=== PATIENT | male | born 1935 | race African-American/Black ===

== ENCOUNTER 2017-12-18 02:46 | Inpatient (IN) | payer MEDICARE, OTHER ==
[~2017-12-18] VITALS: Ht 167.6 cm; Wt 62.6 kg
[2017-12-18] MEDS ORDERED: Nitroglycerin Subl 0.4mg tab SL PRN (03:15)
[2017-12-18] MEDS ORDERED: DOXAZOSIN MESYLA8 MG ORAL (03:22)
[2017-12-18] MEDS ORDERED: CRESTOR20 MG ORAL (03:22)
[2017-12-18] MEDS ORDERED: METOPROLOL SUCC25 MG ORAL (03:22)
[2017-12-18 03:30] LABS: BASOPHILS % (AUTO) 0.5 % (0.0-2.0); HEMATOCRIT 46.6 % (42.0-52.0); HEMOGLOBIN 15.8 G/DL (14.2-18.0); MEAN CORPUSCULAR VOLUME 89 FL (80-99); MONOCYTES % (AUTO) 10.6 % (1.0-10.0); PLATELET COUNT 239 K/UL (150-450); RED BLOOD COUNT 5.25 M/UL (4.70-6.10); RED CELL DISTRIBUTION WIDTH 12.7 % (11.6-14.8); WHITE BLOOD COUNT 4.4 K/UL (4.8-10.8)
[2017-12-18 03:41] LABS: ANION GAP 4 mmol/L (5-15); BLOOD UREA NITROGEN 16 mg/dL (7-18); CALCIUM 8.5 MG/DL (8.5-10.1); CARBON DIOXIDE 32 MMOL/L (21-32); CHLORIDE 104 MMOL/L (98-107); CREATININE 1.1 MG/DL (0.55-1.30); POTASSIUM 3.3 MMOL/L (3.5-5.1); SODIUM 140 MMOL/L (136-145)
[2017-12-18 03:46] VITALS: BP 166/97
[2017-12-18 03:54] LABS: ALANINE AMINOTRANSFERASE 22 U/L (12-78); ALBUMIN 3.8 G/DL (3.4-5.0); ALBUMIN/GLOBULIN RATIO 0.9 (1.0-2.7); ALKALINE PHOSPHATASE 86 U/L (46-116); ASPARTATE AMINO TRANSFERASE 24 U/L (15-37); BILIRUBIN,TOTAL 0.4 MG/DL (0.2-1.0); CKMB 1.1 NG/ML (0.0-3.6); CREATINE KINASE 78 U/L (26-308)
--- NOTE | 2017-12-18 05:09 | Emergency Room Report ---
History of Present Illness General Chief Complaint: Chest Pain Source: Patient Present Illness HPI 82-year-old male presents ED for evaluation. Patient complaining of chest pain since 1 AM. Midsternal, dull, 5 out of 10, nonradiating. Per triage blood pressure is high. Systolic in the 200s. Patient admits to not taking his blood pressure medications. Denies any headache, blurry vision. Denies any neck stiffness. No other aggravating relieving factors. Denies any other associated symptoms Allergies: Coded Allergies: No Known Allergies (Unverified , 12/18/17) Patient History Past Medical History: HTN Past Surgical History: none Pertinent Family History: none Social History: Denies: smoking, alcohol use, drug use Immunizations: UTD Reviewed Nursing Documentation: PMH: Agreed; PSxH: Agreed Nursing Documentation-PMH Past Medical History: No History, Except For Hx Cardiac Problems: No - high cholesterol Hx Hypertension: Yes Review of Systems All Other Systems: negative except mentioned in HPI Physical Exam Vital Signs Date Time Temp Pulse Resp B/P (MAP) Pulse Ox O2 Delivery O2 Flow Rate FiO2 12/18/17 02:51 97.6 60 24 225/105 97 Room Air 97.5 Sp02 EP Interpretation: reviewed, normal General Appearance: no apparent distress, alert, GCS 15, non-toxic Head: normocephalic, atraumatic Eyes: bilateral eye normal inspection, bilateral eye PERRL ENT: hearing grossly normal, normal pharynx, no angioedema, normal voice Neck: full range of motion, supple/symm/no masses Respiratory: chest non-tender, lungs clear, normal breath sounds, speaking full sentences Cardiovascular #1: regular rate, rhythm, no edema Cardiovascular #2: 2+ carotid (R), 2+ carotid (L), 2+ radial (R), 2+ radial (L) , 2+ dorsalis pedis (R), 2+ dorsalis pedis (L) Gastrointestinal: normal bowel sounds, non tender, soft, non-distended, no guarding, no rebound Rectal: deferred Genitourinary: normal inspection, no CVA tenderness Musculoskeletal: back normal, gait/station normal, normal range of motion, non- tender Neurologic: alert, oriented x3, responsive, motor strength/tone normal, sensory intact, speech normal Psychiatric: judgement/insight normal, memory normal, mood/affect normal, no suicidal/homicidal ideation Reflexes: 3+ bicep (R), 3+ bicep (L), 3+ tricep (R), 3+ tricep (L), 3+ knee (R) , 3+ knee (L) Skin: normal color, no rash, warm/dry, well hydrated Lymphatic: no adenopathy Medical Decision Making Diagnostic Impression: Primary Impression: ACS (acute coronary syndrome) Additional Impression: Hypertensive urgency ER Course Hospital Course 82 yo M presents to ED with chest pain, elvated BP Differential diagnoses include: SD/unstable angina, hyperkalemia, hypertensive urgency Clinical course Patient placed on stretcher. on cardiac cath technologist. After initial history and physical I ordered labs, EKG, chest x-ray, Nitroglycerin labs reviewed- no leukocytosis, hemoglobin/hematocrit stable, electrolytes okay , troponins negative. EKG - NSR, twave inversions in lateral leads Chest x-ray- unremarkable BP, chest pain improved after nitroglycerin. Given aspirin Case discussed with Dr. Barrera and he agreed to accept the patient to his service for further care and support I. I feel this is a highly complex case requiring extensive working including EKG/Rhythm strip, Xray/CT/US, Blood/urine lab work, repeat exams while in ED, and administration of strong opiates/narcotics for pain control, admission to hospital or close patient follow up. Diagnosis - hypertensive urgency, ACS admitted to telemetry in serious condition Labs Test 12/18/17 03:24 White Blood Count 4.4 K/UL (4.8-10.8) Red Blood Count 5.25 M/UL (4.70-6.10) Hemoglobin 15.8 G/DL (14.2-18.0) Hematocrit 46.6 % (42.0-52.0) Mean Corpuscular Volume 89 FL (80-99) Mean Corpuscular Hemoglobin 30.2 PG (27.0-31.0) Mean Corpuscular Hemoglobin Concent 34.0 G/DL (32.0-36.0) Red Cell Distribution Width 12.7 % (11.6-14.8) Platelet Count 239 K/UL (150-450) Mean Platelet Volume 6.1 FL (6.5-10.1) Neutrophils (%) (Auto) 59.0 % (45.0-75.0) Lymphocytes (%) (Auto) 28.0 % (20.0-45.0) Monocytes (%) (Auto) 10.6 % (1.0-10.0) Eosinophils (%) (Auto) 2.0 % (0.0-3.0) Basophils (%) (Auto) 0.5 % (0.0-2.0) Sodium Level 140 MMOL/L (136-145) Potassium Level 3.3 MMOL/L (3.5-5.1) Chloride Level 104 MMOL/L (98-107) Carbon Dioxide Level 32 MMOL/L (21-32) Anion Gap 4 mmol/L (5-15) Blood Urea Nitrogen 16 mg/dL (7-18) Creatinine 1.1 MG/DL (0.55-1.30) Estimat Glomerular Filtration Rate mL/min (>60) Glucose Level 113 MG/DL (74-106) Calcium Level 8.5 MG/DL (8.5-10.1) Total Bilirubin 0.4 MG/DL (0.2-1.0) Aspartate Amino Transf (AST/SGOT) 24 U/L (15-37) Alanine Aminotransferase (ALT/SGPT) 22 U/L (12-78) Alkaline Phosphatase 86 U/L (46-116) Total Creatine Kinase 78 U/L (26-308) Creatine Kinase MB 1.1 NG/ML (0.0-3.6) Creatine Kinase MB Relative Index 1.4 Troponin I 0.013 ng/mL (0.000-0.056) Pro-B-Type Natriuretic Peptide 583 pg/mL (0-125) Total Protein 8.0 G/DL (6.4-8.2) Albumin 3.8 G/DL (3.4-5.0) Globulin 4.2 g/dL Albumin/Globulin Ratio 0.9 (1.0-2.7) EKG Diagnostic Results Rate: normal Rhythm: NSR ST Segments: other - twave inversions in lateral leads ASA given to the pt in ED: Yes Rhythm Strip Diag. Results EP Interpretation: yes Rhythm: NSR, no PVC's, no ectopy Chest X-Ray Diagnostic Results Chest X-Ray Diagnostic Results : Chest X-Ray Ordered: Yes # of Views/Limited/Complete: 1 View Indication: Chest Pain EP Interpretation: Yes Interpretation: no consolidation, no effusion, no pneumothorax, other - elevated R hemidiaphragm (unchanged) Impression: No acute disease Electronically Signed by: Electronically signed by Boogie Bloom MD Last Vital Signs Date Time Temp Pulse Resp B/P (MAP) Pulse Ox O2 Delivery O2 Flow Rate FiO2 12/18/17 03:46 66 18 166/97 98 Room Air 12/18/17 02:51 97.6 97.5 Status: improved Disposition: ADMITTED INPATIENT Condition: Serious Referrals: Vicente Barrera MD (PCP) Boogie Bloom MD Dec 18, 2017 05:09
[2017-12-18 06:11] VITALS: BP 168/94
[2017-12-18 08:00] VITALS: BP 183/89
[2017-12-18 12:00] VITALS: BP 164/83
--- NOTE | 2017-12-18 12:12 | Diagnostic Imaging Report ---
Indication: Chest pain Technique: XRAY Chest 1v Comparison: PA and lateral views of the chest 07/10/2017 Findings: Unchanged elevation of the right hemidiaphragm with adjacent right basilar atelectasis/scarring. Heart size and mediastinal contours appear stable. Atherosclerotic calcifications noted in the aortic arch. Costophrenic sulci appear sharp. No pneumothorax. No appreciable acute osseous normality. IMPRESSION: * Unchanged elevation of the right hemidiaphragm. * Linear right basilar opacities likely related to atelectasis or scarring. Correlate clinically to exclude the possibility of superimposed infection. * Atherosclerotic disease.
[2017-12-18 16:00] VITALS: BP 147/67
[2017-12-18] MEDS: Doxazosin 4mg tab ORAL SCH (17:50)
--- NOTE | 2017-12-18 19:54 | Cardiology Report ---
APPROVED REPORT EKG Measurement Heart [id number] Sinus rhythm with frequent premature ventricular complexes Septal infarct, age undetermined Abnormal ECG
[2017-12-18 20:00] VITALS: BP 122/73
[2017-12-18] MEDS: Atorvastatin 20mg tab ORAL SCH (22:36)
--- NOTE | 2017-12-18 23:00 | Consultation ---
DATE OF CONSULTATION: 12/18/2017 CARDIOLOGY CONSULTATION CONSULTING PHYSICIAN: Vicente Barrera M.D. REQUESTING PHYSICIAN: Mani Laughlin M.D. REASON FOR CONSULTATION: Chest pain and uncontrolled hypertension. HISTORY OF PRESENT ILLNESS: This 82-year-old male has a known history of hypertensive and ischemic heart disease. He has been on a multidrug regimen with good blood pressure control. He ran out of medications last week and did not pick them up from the drugstore even though they were called in and ready to be picked up for several days. He developed chest pain this evening at around 1 a.m. The patient was admitted to the hospital with malignant range blood pressure readings as well. 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 MEDICATIONS: Prior to admission, reviewed and reconciled. ALLERGIES: None. FAMILY HISTORY: Noncontributory. SOCIAL HISTORY: Negative for smoking, alcohol, or substance abuse. REVIEW OF SYSTEMS: No fevers or chills. No history of diabetes or thyroid impairment. No history of seizure or stroke. He is on anti-lipid therapy. He had an echo stress test, which revealed mild ischemia in the inferior distribution that has been managed medically per his request. His baseline echocardiogram reveals normal ejection fraction, concentric hypertrophy, and a diastolic relaxation abnormality. There is no history of asthma or blood clots in the legs. He has had outpatient colonoscopy screening, which has been unremarkable. PHYSICAL EXAM: VITAL SIGNS: Blood pressure 225/105, pulse 60, and respirations 24. Afebrile. HEENT: Conjunctivae pink. Arcus senilis. Oropharynx clear. NECK: Supple. Jugular venous pressure normal. No bruits. LUNGS: Clear. CARDIAC: Regular rhythm and rate. Normal S1, S2 with a fourth heart sound. ABDOMEN: Soft and nontender. EXTREMITIES: Good pulses. No edema. NEUROLOGIC: Nonfocal. LABORATORY AND DIAGNOSTIC DATA: EKG, sinus rhythm, voltage for left ventricular hypertrophy, nonspecific ST-T wave changes. Labs notable for potassium 3.3. Troponin 0.013. Pro-natriuretic peptide 583. IMPRESSION: 1. Acute coronary syndrome. 2. Malignant hypertension. 3. Hypokalemia. 4. Acute diastolic congestive heart failure. 5. Medication noncompliance. 6. History of hyperlipidemia. PLAN: 1. Cardiac monitoring. 2. Titration stepwise of antihypertensives for adequate blood pressure control. 3. Antiplatelet therapy. 4. Serial troponin levels. 5. Further recommendations will follow based on clinical course. Vicente Barrera M.D. DR: GLYNN JOB#: [id number] CC: IWONA
[2017-12-19] VITALS: BP 119/75
[2017-12-19 04:00] VITALS: BP 130/69
[2017-12-19 07:17] LABS: BASOPHILS % (AUTO) 0.2 % (0.0-2.0); EOSINOPHILS % (AUTO) 0.8 % (0.0-3.0); HEMATOCRIT 43.1 % (42.0-52.0); HEMOGLOBIN 14.9 G/DL (14.2-18.0); LYMPHOCYTES % (AUTO) 20.7 % (20.0-45.0); MEAN CORPUSCULAR VOLUME 88 FL (80-99); NEUTROPHILS % (AUTO) 69.3 % (45.0-75.0); PLATELET COUNT 228 K/UL (150-450); RED BLOOD COUNT 4.89 M/UL (4.70-6.10); RED CELL DISTRIBUTION WIDTH 12.4 % (11.6-14.8); WHITE BLOOD COUNT 4.5 K/UL (4.8-10.8)
[2017-12-19 07:57] LABS: ALBUMIN 3.5 G/DL (3.4-5.0); ALBUMIN/GLOBULIN RATIO 0.9 (1.0-2.7); ALKALINE PHOSPHATASE 76 U/L (46-116); ANION GAP 7 mmol/L (5-15); ASPARTATE AMINO TRANSFERASE 24 U/L (15-37); BILIRUBIN,TOTAL 0.5 MG/DL (0.2-1.0); BLOOD UREA NITROGEN 13 mg/dL (7-18); CALCIUM 8.9 MG/DL (8.5-10.1); CARBON DIOXIDE 29 MMOL/L (21-32); CHLORIDE 105 MMOL/L (98-107); CREATININE 0.9 MG/DL (0.55-1.30); POTASSIUM 4.5 MMOL/L (3.5-5.1); SODIUM 141 MMOL/L (136-145)
[2017-12-19 08:00] VITALS: BP 117/78
[2017-12-19] MEDS: Aspirin Baby 81mg ORAL SCH (09:18)
[2017-12-19] MEDS: Doxazosin 4mg tab ORAL SCH ×2 (09:18→18:42)
[2017-12-19] MEDS: Metoprolol Succinate XL 25mg tab ORAL SCH (09:18)
[2017-12-19] MEDS: Spironolactone 25mg tab ORAL SCH (09:18)
[2017-12-19 10:42] LABS: ALANINE AMINOTRANSFERASE 19 U/L (12-78)
[2017-12-19 12:00] VITALS: BP 128/77
[2017-12-19 16:00] VITALS: BP 141/73
[2017-12-19 20:00] VITALS: BP 111/64
[2017-12-19] MEDS: Atorvastatin 20mg tab ORAL SCH (21:55)
[2017-12-20] VITALS: BP 111/61
--- NOTE | 2017-12-20 00:30 | Progress Note ---
DATE: 12/19/2017 SUBJECTIVE: The patient is anxious to go home. He denies chest pain or shortness of breath. He is pleased with his control of blood pressure readings. Monitored sinus rhythm with frequent nonsustained ventricular ectopics. OBJECTIVE: NECK: Supple. LUNGS: Clear. CARDIAC: Regular. Normal S1 and S2 with a fourth heart sound. ABDOMEN: Soft. EXTREMITIES: No edema. LABORATORY DATA: Potassium 4.5, BUN 13, and creatinine 0.9. Troponin down to 1.557. IMPRESSION: 1. Hypertensive urgency, resolved and precipitated by noncompliance. 2. Acute myocardial infarction, precipitated by above. 3. Hypomagnesemia of 1.7. 4. History of hyperlipidemia. PLAN: 1. Maintain anti-platelet therapy, beta-blockade ____ antihypertensives with titration. 2. Continue statin drug. 3. IV magnesium replacement. 4. We will likely need coronary angiography for assessment of coronary anatomy if he has had abnormal outpatient stress test in the past. The timing of this study to be determined. Vicente Barrera M.D. DR: CLARA JOB#: [id number] CC:
--- NOTE | 2017-12-20 01:00 | History and Physical Report ---
DATE OF ADMISSION: 12/18/2017 CHIEF COMPLAINT: Chest pain and acute coronary syndrome. HISTORY OF PRESENT ILLNESS: The patient is a pleasant 82-year-old male. He has a history of hypertensive heart disease and coronary artery disease. He presented with complaints of intermittent substernal chest pain, it is described as pressure-like. The patient started early in the morning. According to the patient, resolved after 30 minutes. He would present to the hospital where he was noted to be markedly hypertensive. His initial troponin in the emergency room was normal at 0.013. 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 Declined any additional workup at that time. He otherwise denies any fevers or chills. He has had no shortness of breath. No night sweats. No cough. PAST MEDICAL HISTORY: As above hyperlipidemia, history of back pain, and history of anemia. PAST SURGICAL HISTORY: None. CURRENT MEDICATIONS: Reconciled and reviewed. ALLERGIES: None. FAMILY HISTORY: None. SOCIAL HISTORY: Negative for tobacco, ethanol, or drugs. REVIEW OF SYSTEMS: GENERAL: No fever, chills, or night sweats. HEENT: No headaches or visual changes. CARDIOPULMONARY: Positive for chest pain. No shortness of breath. No cough. GASTROINTESTINAL: No nausea or vomiting. GENITOURINARY: No urgency or frequency. MUSCULOSKELETAL: No joint pain or swelling. NEUROLOGIC: No evidence of seizures. PHYSICAL EXAMINATION: VITAL SIGNS: Temperature 98 degrees, pulse 95, respirations 20, and blood pressure 117/78. GENERAL: The patient is well developed, no apparent distress. NECK: Supple. No jugular venous distention. HEART: Regular rate and rhythm without murmurs, rubs, or gallops. LUNGS: Clear to auscultation bilaterally. ABDOMEN: Soft, nontender, and nondistended. EXTREMITIES: Without clubbing, cyanosis, or edema. LABORATORY DATA: Sodium is 140, potassium 3.3, and creatinine is 1.1. Initial troponin was 0.013. Natriuretic peptide level was 583. Chest x-ray was clear. ASSESSMENT: This is a pleasant male, admitted with complaints of chest pain. PROBLEM LIST: 1. Chest pain, rule out acute coronary syndrome. 2. Hypertension. 3. History of ischemic cardiomyopathy. PLAN: 1. Antiplatelet therapy, p.r.n. nitrates. 2. Cardiology consultation. 3. Serial troponins. 4. Plan of care will be determined after review of pending tests. Mani Laughlin M.D. DR: ANNA JOB#: [id number] CC:
[2017-12-20 04:00] VITALS: BP 133/72
[2017-12-20 08:00] VITALS: BP 141/72
[2017-12-20] MEDS: Metoprolol Succinate XL 25mg tab ORAL SCH (08:41)
[2017-12-20] MEDS: Doxazosin 4mg tab ORAL SCH ×2 (08:41→17:15)
[2017-12-20] MEDS: Aspirin Baby 81mg ORAL SCH (08:41)
[2017-12-20] MEDS: Spironolactone 25mg tab ORAL SCH (08:42)
[2017-12-20 11:54] VITALS: BP 125/66
--- NOTE | 2017-12-20 12:35 | General Progress Note ---
Assessment/Plan Problem List: (1) Hypertension ICD Codes: I10 - Essential (primary) hypertension SNOMED: 82820600 (2) ACS (acute coronary syndrome) ICD Codes: I24.9 - Acute ischemic heart disease, unspecified SNOMED: 860806736 Status: stable, progressing Assessment/Plan antiplt rx prn nitrates statin rx outpt cath Subjective ROS Limited/Unobtainable: No Constitutional: Reports: malaise, weakness HEENT: Reports: no symptoms Cardiovascular: Reports: no symptoms Respiratory: Reports: no symptoms Gastrointestinal/Abdominal: Reports: no symptoms Genitourinary: Reports: no symptoms Neurologic/Psychiatric: Reports: no symptoms Endocrine: Reports: no symptoms Hematologic/Lymphatic: Reports: no symptoms Allergies: Coded Allergies: No Known Allergies (Unverified , 12/18/17) All Systems: reviewed and negative except above Subjective no events. w/o complaints. no CP. troponin trending down. Objective Last 24 Hour Vital Signs Date Time Temp Pulse Resp B/P (MAP) Pulse Ox O2 Delivery O2 Flow Rate FiO2 12/20/17 11:54 97.9 73 20 125/66 (85) 99 97.9 12/20/17 09:00 Room Air 12/20/17 08:42 64 141/72 12/20/17 08:41 64 141/72 12/20/17 08:00 97.2 64 20 141/72 (95) 98 97.2 12/20/17 08:00 58 12/20/17 04:00 97.7 67 20 133/72 (92) 96 97.7 12/20/17 04:00 55 12/20/17 00:00 97.7 64 20 111/61 (78) 95 97.7 12/20/17 00:00 56 12/19/17 21:00 Room Air 12/19/17 20:00 65 12/19/17 20:00 98.1 72 20 111/64 (80) 94 98.1 12/19/17 16:00 63 12/19/17 16:00 97.9 71 18 141/73 (95) 95 97.9 Intake and Output 12/19/17 12/20/17 19:00 07:00 Intake Total 480 ml 100 ml Balance 480 ml 100 ml Intake Oral 480 ml 100 ml # Voids 2 # Bowel Movements 2 Height (Feet): 5 Height (Inches): 6.00 Weight (Pounds): 138 General Appearance: WD/WN Neck: supple Cardiovascular: normal rate, regular rhythm Respiratory/Chest: chest wall non-tender, lungs clear, normal breath sounds Abdomen: normal bowel sounds, non tender, soft, no organomegaly Edema: no edema noted Arm (L), no edema noted Arm (R), no edema noted Leg (L), no edema noted Leg (R), no edema noted Pedal (L), no edema noted Pedal (R), no edema noted Generalized Mani Laughlin MD Dec 20, 2017 12:35
[2017-12-20 16:00] VITALS: BP 120/65
[2017-12-20 20:00] VITALS: BP 114/58
[2017-12-20] MEDS: Atorvastatin 20mg tab ORAL SCH (21:49)
[2017-12-21] VITALS: BP 109/65
--- NOTE | 2017-12-21 01:45 | Progress Note ---
DATE: 12/20/2017 SUBJECTIVE: The patient continues to remain anxious to go home. He has no chest pain. No shortness of breath. Blood pressure is well controlled. Troponin has decreased from a peak of 1.557 to 0.576 today. OBJECTIVE: LUNGS: Good breath sounds. No wheezing. Jugular venous pressure normal. HEART: Regular rhythm rate. Normal S1 and S2 with a fourth heart sound. ABDOMEN: Soft. No edema. IMPRESSION: 1. Acute myocardial infarction, non-ST elevation type. 2. Hypertensive urgency, resolved. 3. Hypertensive heart disease. 4. Hyperlipidemia. PLAN: 1. Stabilize medically. 2. Continue anti-platelet, anti-lipid, and antihypertensive regimen. 3. He will need coronary angiography for assessment of coronary anatomy and possible intervention based on findings. Timing to be determined based on clinical course. Vicente Barrera M.D. DR: BEBE JOB#: [id number] CC:
[2017-12-21 04:00] VITALS: BP 119/68
[2017-12-21 06:29] LABS: BASOPHILS % (AUTO) 0.4 % (0.0-2.0); EOSINOPHILS % (AUTO) 1.5 % (0.0-3.0); HEMATOCRIT 42.1 % (42.0-52.0); HEMOGLOBIN 14.5 G/DL (14.2-18.0); LYMPHOCYTES % (AUTO) 20.2 % (20.0-45.0); MEAN CORPUSCULAR VOLUME 88 FL (80-99); MONOCYTES % (AUTO) 10.3 % (1.0-10.0); NEUTROPHILS % (AUTO) 67.8 % (45.0-75.0); PLATELET COUNT 208 K/UL (150-450); RED BLOOD COUNT 4.79 M/UL (4.70-6.10); RED CELL DISTRIBUTION WIDTH 12.1 % (11.6-14.8); WHITE BLOOD COUNT 5.3 K/UL (4.8-10.8)
[2017-12-21 07:03] LABS: ALANINE AMINOTRANSFERASE 25 U/L (12-78); ALBUMIN 3.5 G/DL (3.4-5.0); ALBUMIN/GLOBULIN RATIO 0.9 (1.0-2.7); ALKALINE PHOSPHATASE 81 U/L (46-116); ANION GAP 6 mmol/L (5-15); ASPARTATE AMINO TRANSFERASE 26 U/L (15-37); BILIRUBIN,TOTAL 0.5 MG/DL (0.2-1.0); BLOOD UREA NITROGEN 20 mg/dL (7-18); CALCIUM 8.9 MG/DL (8.5-10.1); CARBON DIOXIDE 27 MMOL/L (21-32); CHLORIDE 105 MMOL/L (98-107); POTASSIUM 4.6 MMOL/L (3.5-5.1); SODIUM 138 MMOL/L (136-145)
[2017-12-21 08:00] VITALS: BP 132/75
[2017-12-21] MEDS: Aspirin Baby 81mg ORAL SCH (08:49)
[2017-12-21] MEDS: Spironolactone 25mg tab ORAL SCH (08:49)
[2017-12-21] MEDS: Doxazosin 4mg tab ORAL SCH ×2 (08:49→17:25)
[2017-12-21] MEDS: Metoprolol Succinate XL 25mg tab ORAL SCH (08:50)
[2017-12-21 12:00] VITALS: BP 118/67
[2017-12-21 16:00] VITALS: BP 147/75
--- NOTE | 2017-12-21 19:05 | General Progress Note ---
Assessment/Plan Problem List: (1) Hypertension ICD Codes: I10 - Essential (primary) hypertension SNOMED: 98874197 (2) ACS (acute coronary syndrome) ICD Codes: I24.9 - Acute ischemic heart disease, unspecified SNOMED: 066441099 Status: stable, progressing Assessment/Plan antiplt rx prn nitrates statin rx outpt cath dc per cards Subjective ROS Limited/Unobtainable: No Constitutional: Reports: malaise, weakness HEENT: Reports: no symptoms Cardiovascular: Reports: no symptoms Respiratory: Reports: no symptoms Gastrointestinal/Abdominal: Reports: no symptoms Genitourinary: Reports: no symptoms Neurologic/Psychiatric: Reports: no symptoms Endocrine: Reports: no symptoms Hematologic/Lymphatic: Reports: no symptoms Allergies: Coded Allergies: No Known Allergies (Unverified , 12/18/17) All Systems: reviewed and negative except above Subjective no events. w/o complaints. no CP. troponin trending down. no new concerns or questions. son at the bedside Objective Last 24 Hour Vital Signs Date Time Temp Pulse Resp B/P (MAP) Pulse Ox O2 Delivery O2 Flow Rate FiO2 12/21/17 16:00 63 12/21/17 16:00 97.9 66 20 147/75 (99) 96 97.9 12/21/17 12:00 52 12/21/17 12:00 97.0 69 20 118/67 (84) 98 97.0 12/21/17 09:00 Room Air 12/21/17 08:50 75 132/75 12/21/17 08:50 75 132/75 12/21/17 08:00 96.8 75 20 132/75 (94) 96 96.8 12/21/17 08:00 60 12/21/17 04:00 67 12/21/17 04:00 97.3 67 21 119/68 (85) 93 97.3 12/21/17 00:00 63 12/21/17 00:00 97.5 67 20 109/65 (80) 93 97.5 12/20/17 21:00 Room Air 12/20/17 20:00 75 12/20/17 20:00 97.7 77 20 114/58 (76) 95 97.7 Intake and Output 12/20/17 12/21/17 19:00 07:00 Intake Total 600 ml 120 ml Balance 600 ml 120 ml Intake Oral 600 ml 120 ml # Voids 2 2 # Bowel Movements 2 Laboratory Tests 12/21/17 05:30: White Blood Count 5.3, Red Blood Count 4.79, Hemoglobin 14.5, Hematocrit 42.1, Mean Corpuscular Volume 88, Mean Corpuscular Hemoglobin 30.3, Mean Corpuscular Hemoglobin Concent 34.5, Red Cell Distribution Width 12.1, Platelet Count 208, Mean Platelet Volume 6.1L, Neutrophils (%) (Auto) 67.8, Lymphocytes (%) (Auto) 20.2, Monocytes (%) (Auto) 10.3H, Eosinophils (%) (Auto) 1.5, Basophils (%) ( Auto) 0.4, Sodium Level 138, Potassium Level 4.6, Chloride Level 105, Carbon Dioxide Level 27, Anion Gap 6, Blood Urea Nitrogen 20H, Creatinine 1.0, Estimat Glomerular Filtration Rate , Glucose Level 102, Calcium Level 8.9, Magnesium Level 2.0, Total Bilirubin 0.5, Aspartate Amino Transf (AST/SGOT) 26, Alanine Aminotransferase (ALT/SGPT) 25, Alkaline Phosphatase 81, Troponin I 0.514H, Pro- B-Type Natriuretic Peptide 131H, Total Protein 7.2, Albumin 3.5, Globulin 3.7, Albumin/Globulin Ratio 0.9L Height (Feet): 5 Height (Inches): 6.00 Weight (Pounds): 138 Objective General Appearance: WD/WN Neck: supple Cardiovascular: normal rate, regular rhythm Respiratory/Chest: chest wall non-tender, lungs clear, normal breath sounds Abdomen: normal bowel sounds, non tender, soft, no organomegaly Edema: no edema noted Arm (L), no edema noted Arm (R), no edema noted Leg (L), no edema noted Leg (R), no edema noted Pedal (L), no edema noted Pedal (R), no edema noted Generalized Mani Laughlin MD Dec 21, 2017 19:05
[2017-12-21 20:00] VITALS: BP 129/71
[2017-12-21] MEDS: Heparin 5000 units/ml inj SUBQ SCH (21:13)
[2017-12-21] MEDS: Atorvastatin 20mg tab ORAL SCH (21:13)
[2017-12-21] MEDS ORDERED: Lexiscan 0.4mg/5ml syringe IV SCH (22:30)
[2017-12-22] VITALS: BP 110/59
--- NOTE | 2017-12-22 03:15 | Progress Note ---
DATE: 12/21/2017 CARDIOLOGY PROGRESS NOTE SUBJECTIVE: No chest pain or shortness of breath. Feels weak today. OBJECTIVE: VITAL SIGNS: Blood pressure 118/67 to 147/75, heart rate 52 to 66, afebrile. Monitor, sinus and sinus bradycardia. Troponin down to 0.51. LUNGS: Good breath sounds. No wheezing. No rales. HEART: Regular rhythm and rate. Normal S1, S2 with a fourth heart sound. No jugular venous distention. EXTREMITIES: Without edema. Good distal pulses. NEUROLOGIC: Nonfocal. IMPRESSION: 1. Malignant hypertension, secondary to noncompliance, recovered. 2. Acute myocardial infarction, uncomplicated. 3. History of coronary artery disease with stable angina previously. 4. Dyslipidemia on statin therapy. 5. Sinus bradycardia due to beta-ca therapy. PLAN: 1. Continue anti-lipid drugs, anti-platelet therapy, and current antihypertensives. 2. Maintain cardiac monitoring. 3. Noninvasive assessment of coronary flow reserve. 4. We will follow and subsequent consideration for coronary angiography. Vicente Barrera M.D. DR: MARY JOB#: [id number] CC:
[2017-12-22 04:00] VITALS: BP 106/67
[2017-12-22 08:00] VITALS: BP 121/63
[2017-12-22] MEDS ORDERED: Lexiscan 0.4mg/5ml syringe IV SCH (08:00)
--- NOTE | 2017-12-22 08:10 | General Progress Note ---
Assessment/Plan Problem List: (1) Hypertension ICD Codes: I10 - Essential (primary) hypertension SNOMED: 29413610 (2) ACS (acute coronary syndrome) ICD Codes: I24.9 - Acute ischemic heart disease, unspecified SNOMED: 225568937 Status: stable, progressing Assessment/Plan antiplt rx prn nitrates statin rx outpt cath dc per cards Subjective ROS Limited/Unobtainable: No HEENT: Reports: no symptoms Cardiovascular: Reports: no symptoms Respiratory: Reports: no symptoms Gastrointestinal/Abdominal: Reports: no symptoms Genitourinary: Reports: no symptoms Neurologic/Psychiatric: Reports: no symptoms Endocrine: Reports: no symptoms Hematologic/Lymphatic: Reports: no symptoms Allergies: Coded Allergies: No Known Allergies (Unverified , 12/18/17) All Systems: reviewed and negative except above Subjective no events. w/o complaints. no chest pain or sob Objective Last 24 Hour Vital Signs Date Time Temp Pulse Resp B/P (MAP) Pulse Ox O2 Delivery O2 Flow Rate FiO2 12/22/17 04:00 98.1 78 18 106/67 (80) 96 98.1 12/22/17 04:00 73 12/22/17 00:00 98.2 67 20 110/59 (76) 96 98.2 12/22/17 00:00 80 12/21/17 21:00 Room Air 12/21/17 20:00 98.0 87 20 129/71 (90) 96 98.0 12/21/17 20:00 63 12/21/17 16:00 63 12/21/17 16:00 97.9 66 20 147/75 (99) 96 97.9 12/21/17 12:00 52 12/21/17 12:00 97.0 69 20 118/67 (84) 98 97.0 12/21/17 09:00 Room Air 12/21/17 08:50 75 132/75 12/21/17 08:50 75 132/75 Intake and Output 12/21/17 12/22/17 19:00 07:00 Intake Total 500 ml Balance 500 ml Intake Oral 500 ml # Voids 3 3 # Bowel Movements 4 2 Laboratory Tests 12/22/17 06:35: Troponin I [Pending], Pro-B-Type Natriuretic Peptide [Pending] Height (Feet): 5 Height (Inches): 6.00 Weight (Pounds): 138 Objective General Appearance: WD/WN Neck: supple Cardiovascular: normal rate, regular rhythm Respiratory/Chest: chest wall non-tender, lungs clear, normal breath sounds Abdomen: normal bowel sounds, non tender, soft, no organomegaly Edema: no edema noted Arm (L), no edema noted Arm (R), no edema noted Leg (L), no edema noted Leg (R), no edema noted Pedal (L), no edema noted Pedal (R), no edema noted Generalized Mani Laughlin MD Dec 22, 2017 08:10
[2017-12-22] MEDS: Spironolactone 25mg tab ORAL SCH (08:36)
[2017-12-22] MEDS: Aspirin Baby 81mg ORAL SCH (08:36)
[2017-12-22] MEDS: Heparin 5000 units/ml inj SUBQ SCH (08:36)
[2017-12-22] MEDS: Doxazosin 4mg tab ORAL SCH (08:37)
[2017-12-22] MEDS: Metoprolol Succinate XL 25mg tab ORAL SCH (08:38)
[2017-12-22 12:00] VITALS: BP 144/77
--- NOTE | 2017-12-22 15:25 | Diagnostic Imaging Report ---
Indications: Chest pain Technique: Single day single isotope protocol utilized. Initially, resting images obtained using IV administration 10.6 millicuries 99M technetium Myoview. Subsequently, patient underwent lexiscan stress testing. See cardiology report for details. During Lexiscan infusion, IV administration 32.3 mCi 99 M technetium Myoview. SPECT and planar images obtained. SPECT images gated to 8 phases of the cardiac cycle were also obtained, and reformatted into cine images for evaluation of ejection fraction. Comparison: none Findings: Presence or absence of symptoms during infusion is not described on the cardiology report. Per cardiology report, resting EKG demonstrates sinus rhythm with PACs, age indeterminate septal infarct. During infusion, [address] depression noted. Imaging demonstrates normal poststress perfusion. No fixed nor reversible perfusion defects. Normal cardiac chamber size. Calculated post stress ejection fraction 66%. No focal wall motion abnormality Impression: Nonischemic clinical response to pharmacologic stress, per cardiology report Ischemic electrocardiographic response to pharmacologic stress, per cardiology report No imaging findings to suggest ischemia, at level of stress achieved. Calculated post stress ejection fraction 66%
--- NOTE | 2017-12-23 03:45 | Progress Note ---
DATE: 12/22/2017 CARDIOLOGY PROGRESS NOTE SUBJECTIVE: The patient has no chest pain. No shortness of breath. Monitored rhythm, sinus with rare PVCs. OBJECTIVE: VITAL SIGNS: Blood pressure now well controlled 106/67 to 129/71, heart rate in the 60 to 80 range. LUNGS: Good breath sounds. No wheezing. HEART: Regular rhythm and rate. Normal S1 and S2 with a fourth heart sound. No murmur. ABDOMEN: Soft. EXTREMITIES: No edema. LABORATORY DATA: Myocardial perfusion scan was performed with Lexiscan stress and while the patient had some ST change, his perfusion scan was normal. IMPRESSION: 1. Acute myocardial infarction likely precipitated by hypertensive urgency. 2. Hypertensive urgency was precipitated by noncompliance of medical therapy. 3. 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 PLAN: The patient is advised and explained to comply with his medication regimen. He is now aware of the risks including repeat heart attack, stroke, or . The patient will follow up in my office within 10 days' time. The patient's medications were reviewed in detail with him and he is to follow up as described. Vicente Barrera M.D. DR: ALEAH JOB#: [id number] CC:
--- NOTE | 2017-12-25 08:12 | Discharge Summary ---
Discharge Summary Discharge Summary _ DATE OF ADMISSION: 12/18/2017 DATE OF DISCHARGE: 12/22/2017 REASON FOR ADMISSION: 82 years old male with past medical history of hypertensive heart disease, coronary artery disease, hyperlipidemia, anemia, back pain presented with complaint of intermittent substernal chest pain described as pressure-like. Pain resolved after 30 minutes. Upon evaluation patient was markedly hypertensive. Blood pressure 225/105. Initial troponin was negative. ECG revealed sinus rhythm with frequent premature ventricular complexes Patient recently had stress test, which was abnormal in his radio interference investigator's office. No shortness of breath,no fever, no chills, no night sweats. Chest x-ray revealed atherosclerotic disease. Patient admitted with diagnoses of chest pain, rule out acute coronary syndrome , hypertensive urgency, hypertensive heart disease. CONSULTANTS: radio interference investigator [facility] COURSE: Patient admitted to telemetry floor. Cardiology consult was requested. Next troponin elevated to 1.557, then started to trend down , last troponin prior to discharge 0.215. Medical management with antiplatelet therapy ,beta ca, statin and nitroglycerin as needed , was provided. Blood pressure was managed with beta ca ,calcium channel ca, Cardura and low dose of Aldactone. Blood pressure stabilized. Prior to discharge blood pressure 144/77. Nuclear stress test revealed nonischemic clinical response and ischemic electrocardiographic response as per cardiology report. Calculated ejection fraction 66%. No imaging finding to suggest ischemia level stressed. Patient was counseled on compliance with medical therapy and cardiac low-fat low-cholesterol diet. Patient will need outpatient cardiac catheterization . Electrolytes were closely monitored and corrected as needed. Supplemental oxygen provided as needed to keep pulse oximetry above 92%. DVT prophylaxis provided. Pain management was addressed, and pain was controlled. Supportive care provided. Patient clinically improved ; chest pain resolved, blood pressure stabilized. Patient was ready for discharge home. Outpatient follow-up with radio interference investigator in 10 days. 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 DISCHARGE INSTRUCTIONS: Patient was discharged home . Follow up with radio interference investigator in 10 days as advised. I have been assigned to dictate discharge summary for this account. I was not involved in the patient's management. Alisa Haq NP Dec 25, 2017 08:12
== END 2017-12-22 15:20 | disposition home or self-care (01) | DRG 280 ==
LOC: EMR 03:10 → 2E 03:25 → EDBEDREQ 04:13 → 2E 22:27
DX: I21.9 Acute myocardial infarction, unspecified (principal); I50.31 Acute diastolic (congestive) heart failure; I11.0 Hypertensive heart disease with heart failure; I16.0 Hypertensive urgency; E78.5 Hyperlipidemia, unspecified; M19.90 Unspecified osteoarthritis, unspecified site; I25.10 Atherosclerotic heart disease of native coronary artery without angina pectoris; D51.0 Vitamin B12 deficiency anemia due to intrinsic factor deficiency; E87.6 Hypokalemia; Z91.14 Patient's other noncompliance with medication regimen; E83.42 Hypomagnesemia; I24.9 Acute ischemic heart disease, unspecified; R00.1 Bradycardia, unspecified; T44.7X5A Adverse effect of beta-adrenoreceptor antagonists, initial encounter
CPT/HCPCS: 36415; 71045; 78452; 80053; 82550; 82553; 83735; 83880; 84484; 85025; 93005; 93017; 93306; 99285; J2785; J8499

== ENCOUNTER 2020-05-12 11:05 | Inpatient (IN) | payer MEDICARE, OTHER ==
[~2020-05-12] VITALS: Ht 167.6 cm; Wt 62.1 kg
[~2020-05-12 11:05] MED LIST: CRESTOR20 MG ORAL; DOXAZOSIN MESYLA8 MG ORAL; METOPROLOL SUCC25 MG ORAL
[2020-05-12] MEDS: Aspirin Baby 81mg ORAL SCH (14:30)
[2020-05-12 15:12] LABS: BASOPHILS % (AUTO) 0.4 % (0.0-2.0); EOSINOPHILS % (AUTO) 0.3 % (0.0-3.0); HEMATOCRIT 48.8 % (42.0-52.0); HEMOGLOBIN 16.6 G/DL (14.2-18.0); LYMPHOCYTES % (AUTO) 23.1 % (20.0-45.0); MEAN CORPUSCULAR VOLUME 88 FL (80-99); MONOCYTES % (AUTO) 12.1 % (1.0-10.0); NEUTROPHILS % (AUTO) 64.1 % (45.0-75.0); PLATELET COUNT 280 K/UL (150-450); RED BLOOD COUNT 5.55 M/UL (4.70-6.10); RED CELL DISTRIBUTION WIDTH 13.3 % (11.6-14.8); WHITE BLOOD COUNT 4.7 K/UL (4.8-10.8)
--- NOTE | 2020-05-12 15:13 | Diagnostic Imaging Report ---
Indication: Altered mental status Technique: spiral acquisitions obtained through the brain. Angled axial and coronal 5 x 5 mm slices were reconstructed. No IV contrast utilized. Radiation dose was minimized using automated exposure control Total dose length product 1098 mGycm. CTDIvol(s) 53 mGy Comparison: none FINDINGS: No acute hemorrhage or edema. No mass effect or midline shift. There is age-related enlargement of the ventricles and extra axial CSF spaces. There is periventricular deep white matter ischemic change. Normal torres-white differentiation. Visualized orbits are unremarkable. Visualized sinuses are unremarkable. Intact calvarium. IMPRESSION: Chronic and age-related changes. Negative for acute intracranial bleed or mass effect The CT scanner at [facility] is accredited by the [employer] and the scans are performed using protocols designed to limit radiation exposure to as low as reasonably achievable to attain images of sufficient resolution adequate for diagnostic evaluation
[2020-05-12 15:26] LABS: CALCIUM 9.6 MG/DL (8.5-10.1); CREATININE 1.5 MG/DL (0.55-1.30); POTASSIUM 4.8 MMOL/L (3.5-5.1)
[2020-05-12 15:38] LABS: ALBUMIN 3.4 G/DL (3.4-5.0); ALBUMIN/GLOBULIN RATIO 0.6 (1.0-2.7); BILIRUBIN,TOTAL 0.6 MG/DL (0.2-1.0)
[2020-05-12 16:00] VITALS: BP 139/93
[2020-05-12 17:36] VITALS: BP 120/80
--- NOTE | 2020-05-12 19:15 | NUR ---
NURSE NOTES: Received pt and report from ALINA Fletcher. Observed pt resting in bed with both eyes close; arousable to voice. Pt is A/Ox4; forgetful. merchandising representative is in placed; pt is currently NSR (77 bpm). IV site intact, asymptomatic, and patent; running D5 NS @100ml/hr. No SOB noted. Pt is on room air, RR at 17; O2 sat 95%. Bed is in the lowest position and locked. Call light and bedside table is within reach. No signs/symptoms of acute distress noted. Will continue plan of care.
[2020-05-12 20:00] VITALS: BP 134/80
[2020-05-12] MEDS: D5NS 1,000 ML IV SCH (20:01)
[2020-05-12] MEDS: Metoprolol Succinate XL 25mg tab ORAL SCH (21:21)
[2020-05-13] VITALS: BP 126/78
--- NOTE | 2020-05-13 02:11 | NUR ---
NURSE NOTES: Observed pt asleep in bed. No SOB or acute distress noted. Will continue plan of care.
--- NOTE | 2020-05-13 03:14 | History and Physical Report ---
DATE OF ADMISSION: 05/12/2020 REASON FOR ADMISSION: Acute encephalopathy. HISTORY OF PRESENT ILLNESS: This is an 84-year-old male, well known to me from outpatient care. He was seen in my office last week and noted to have a slight decrease in his baseline blood pressure parameters, however, no other symptoms were noted and the patient was in his usual state of health. His antihypertensive drugs namely doxazosin was dose decreased and he reportedly had no subsequent symptoms. Over the past 3 to 4 days, however, his brother and other family members have noted him to be withdrawn and confused with regard to his speech and anorexic. He has not had any chest pain or shortness of breath, cough or sputum production, nausea, vomiting, or diarrhea. He has just had a poor appetite and has been withdrawn. He was brought into my office yesterday. COVID-19 PCR swab was obtained. The patient refused hospitalization at that time, but his condition worsened today prompting this admission. PAST MEDICAL HISTORY: Hypertension, coronary atherosclerosis, history of myocardial infarction, hyperlipidemia, osteoarthritis, degenerative disk disease, prostatic hypertrophy, vitamin D deficiency. ALLERGIES: None known. MEDICATIONS: Reviewed. FAMILY HISTORY: Noncontributory. 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 Negative for smoking, alcohol, or substance abuse. REVIEW OF SYSTEMS: A 10-point review of systems performed notable for the following. No known COVID-19 exposures. No loss of vision or hearing. Prior myocardial perfusion scan has not revealed any flow-limiting coronary disease. Echocardiogram has revealed normal ejection fraction, concentric hypertrophy, and mild degenerative valve disease of no clear hemodynamic significance. He is on anti-lipid therapy with a statin drug. He has not had a prior stroke, but does have cerebral atherosclerosis. He had a colonoscopy in 2011, notable only for mild diverticular disease. He has not had any recent change in bowel habits. There is no history of prostate cancer. PHYSICAL EXAMINATION: GENERAL: Well developed, well nourished, withdrawn, however, with positive speech and some dysarthria. VITAL SIGNS: Blood pressure 139/93, heart rate 90, respiratory rate 20, afebrile. HEENT: Normocephalic and atraumatic. Conjunctivae pink. Sclerae anicteric. Arcus senilis. Oropharynx clear. Mucous membranes dry. NECK: Supple. Jugular venous pressure normal. LUNGS: Clear. CARDIAC: Regular rate, normal S1, S2 with a fourth heart sound. ABDOMEN: Soft, nontender. No guarding. No rebound. EXTREMITIES: No clubbing, cyanosis, or edema. DIAGNOSTIC DATA: CT scan of the brain reveals diffuse white matter disease with no acute process. White count is 4.7, hemoglobin 16.6. Sodium 139, potassium 4.8, bicarb 26, BUN 44, creatinine 1.5. Glucose 107, troponin 0.007, albumin 3.4. TSH 1.4. IMPRESSION: 1. Acute encephalopathy, rule out COVID-19 infection, rule out indolent cerebrovascular accident. 2. Hypovolemia and dehydration with prerenal azotemia. 3. History of hypertension now with low range blood pressure. PLAN: 1. IV fluid hydration. 2. Follow up results of COVID-19 swab. Isolation. 3. Metabolic profile. 4. Consider MRI of the brain. 5. We will follow. Vicente Barrera M.D. DR: CALLIE JOB#: [id number] CC:
[2020-05-13 04:00] VITALS: BP 131/76
[2020-05-13] MEDS: D5NS 1,000 ML IV SCH ×2 (04:31→14:53)
--- NOTE | 2020-05-13 07:27 | NUR ---
NURSE HAND-OFF REPORT: Important Events on Shift: No complaint of CP or SOB during night time babysitter. Pt is currently on RA; O2 sat at 96%. Patient Status: Stable Diet: Regular Pending Orders: N Pending Results/Labs: AM Labs/ COVID swab Pending MD notification:[] Latest Vital Signs: Temperature 98.2 , Pulse 56 , B/P 131 /76 , Respiratory Rate 19 , O2 SAT 96 , , O2 Flow Rate . EKG Rhythm: Sinus Bradycardia Rhythm change?: Y Notified?: Moustapha Barrera Latest [place] Fall Score: 35 Fall Risk: Medium Risk Safety Measures: Call light Within Reach, Bed Alarm Zone 1, Side Rails Side Rails x2, Bed position Low and Locked. Fall Precautions: Yellow Socks Patient Fall Education Report given to ALINA Castillo.
--- NOTE | 2020-05-13 07:28 | NUR ---
NURSE NOTES: Received patient in bed. Awake, A/O x4. On room air, respirations unlabored. Patient denies pain. IV in Left forearm, infusing IVF as ordered. Bed low and locked, side rails upx2, call light within reach with return demonstration.
[2020-05-13 07:33] LABS: ANION GAP 8 mmol/L (5-15); BLOOD UREA NITROGEN 35 mg/dL (7-18); CALCIUM 8.8 MG/DL (8.5-10.1); CARBON DIOXIDE 27 MMOL/L (21-32); CHLORIDE 107 MMOL/L (98-107); CREATININE 1.3 MG/DL (0.55-1.30); POTASSIUM 4.2 MMOL/L (3.5-5.1); SODIUM 142 MMOL/L (136-145)
[2020-05-13 07:39] LABS: AMMONIA 28 umol/L (11-32)
[2020-05-13 08:00] VITALS: BP 136/82
[2020-05-13] MEDS: Losartan 50mg tab ORAL SCH (08:37)
[2020-05-13] MEDS: Aspirin Baby 81mg ORAL SCH (08:37)
[2020-05-13] MEDS: Zinc Sulfate 220mg ORAL SCH (08:37)
[2020-05-13] MEDS: Vitamin D 1000 units Tab ORAL SCH (08:38)
[2020-05-13 12:00] VITALS: BP 128/80
[2020-05-13] MEDS ORDERED: OMEPRAZOLE20 M2 ORAL (12:20)
[2020-05-13] MEDS ORDERED: DOXAZOSIN MESYLA4 MG ORAL (12:20)
[2020-05-13] MEDS ORDERED: HYZAAR 100-12.1 EACH ORAL (12:22)
[2020-05-13] MEDS ORDERED: SPIRONOLACTONE25 MG ORAL (12:22)
--- NOTE | 2020-05-13 15:45 | NUR ---
CASE MANAGEMENT:REVIEW FROM HOME SI: ACUTE ENCEPHALOPATHY. HYPOVOLEMIA 97.9 90 20 139/93 95% ON RA BUN+44 CR+1.5 IS: ASA PO QD IVF@100/HR TOPROL XL PO QHS COZAAR PO QD VIT D PO QD ZINC PO QD CT HEAD : DIRECTLY ADMITTED TO TELEMETRY FROM HOME PLAN: NEURO CHECKS Q4HRS WITH VITALS
[2020-05-13 16:00] VITALS: BP 108/56
--- NOTE | 2020-05-13 18:55 | NUR ---
NURSE HAND-OFF REPORT: Important Events on Shift:[SB] Patient Status: [FULL CODE] Diet: [regular] Pending Orders: [] Pending Results/Labs:[] Pending MD notification:[] Latest Vital Signs: Temperature 96.6 , Pulse 55 , B/P 108 /56 , Respiratory Rate 18 , O2 SAT 95 , , O2 Flow Rate . Vital Sign Comment: [] EKG Rhythm: Sinus Bradycardia Rhythm change?: N MD Notified?: Moustapha Barrera MD Response: Latest [place] Fall Score: 35 Fall Risk: Medium Risk Safety Measures: Call light Within Reach, Bed Alarm Zone 1, Side Rails Side Rails x2, Bed position Low and Locked. Fall Precautions: Yellow Socks Patient Fall Education Report given to [Mague RN].
--- NOTE | 2020-05-13 19:15 | NUR ---
NURSE NOTES: Received pt and report from ALINA Castillo. Observed pt asleep in bed; arousable to voice. Pt is A/Ox4; forgetful. telemetry monitor is in placed; pt is currently NSR (61 bpm). IV site intact, asymptomatic, and patent; running D5 NS @100ml/hr. No SOB noted. Pt is on room air, RR at 17; O2 sat 96%. Bed is in the lowest position and locked. Call light and bedside table is within reach. No signs/symptoms of acute distress noted. Will continue plan of care.
[2020-05-13 20:00] VITALS: BP 107/68
[2020-05-13] MEDS: Metoprolol Succinate XL 25mg tab ORAL SCH (20:43)
--- NOTE | 2020-05-13 21:27 | NUR ---
NURSE NOTES: Pt was swabbed at Dr. Barrera's office prior to admission. Per Dr. Barrera, pt's COVID results came back positive. Pt is in contact and droplet isolation precaution.
--- NOTE | 2020-05-13 21:52 | Cardiology Progress Note ---
Subjective DATE OF SERVICE: May 13, 2020 Appetite still poor He has no cough, SOB, CP, or hypoxia. COVID PCR swab done in my office yesterday was POSITIVE Head CT: negative for acute infarct Objective Last 24 Hour Vital Signs Date Time Temp Pulse Resp B/P (MAP) Pulse Ox O2 Delivery O2 Flow Rate FiO2 05/13/20 20:43 73 113/69 05/13/20 20:00 98.2 76 17 107/68 (81) 96 05/13/20 16:00 55 05/13/20 16:00 96.6 66 18 108/56 (73) 95 05/13/20 12:00 55 05/13/20 12:00 97.9 54 20 128/80 (96) 96 05/13/20 09:00 Room Air 05/13/20 08:37 136/82 05/13/20 08:00 63 05/13/20 08:00 98.0 67 18 136/82 (100) 95 05/13/20 04:00 56 05/13/20 04:00 98.2 56 19 131/76 (94) 96 05/13/20 00:00 98.6 94 17 126/78 (94) 95 05/13/20 00:00 62 HEENT: normal ENT inspection RHYTHM: NSR, PVCs LUNGS: normal breath sounds CARDIAC: regular rhythm, normal S1 and S2, no murmur ABDOMEN: normal bowel sounds, non tender, soft, no organomegaly EXTREMITIES: normal range of motion Laboratory Tests Test 05/13/20 06:03 Sodium Level 142 MMOL/L (136-145) Potassium Level 4.2 MMOL/L (3.5-5.1) Chloride Level 107 MMOL/L (98-107) Carbon Dioxide Level 27 MMOL/L (21-32) Anion Gap 8 mmol/L (5-15) Blood Urea Nitrogen 35 mg/dL (7-18) H Creatinine 1.3 MG/DL (0.55-1.30) Estimat Glomerular Filtration Rate > 60 mL/min (>60) Glucose Level 142 MG/DL (74-106) H Calcium Level 8.8 MG/DL (8.5-10.1) Magnesium Level 1.9 MG/DL (1.8-2.4) Ammonia 28 umol/L (11-32) Assessment/Plan Assessment/Plan Covid-19 infection Anorexia Toxic encephalopathy No signs of acute CVA Hypovolemia/dehydration Prerenal azotemia/SHIRA Isolation IVF Nutrition Check CXR Family notified to quarantine and get tested SNF transfer; patient cannot return home until off isolation. Vicente Barrera MD May 13, 2020 21:52
[2020-05-14] VITALS: BP 109/67
[2020-05-14] MEDS: D5NS 1,000 ML IV SCH ×2 (00:34→10:51)
--- NOTE | 2020-05-14 01:17 | NUR ---
NURSE NOTES: Observed pt resting in bed with both eyes closed; arousable to voice. No SOB or acute distress noted. Will continue plan of care.
[2020-05-14 04:00] VITALS: BP 117/71
--- NOTE | 2020-05-14 07:42 | NUR ---
NURSE HAND-OFF REPORT: Important Events on Shift: Pt is COVID positive per Dr. Barrera. Pt was swabbed at Dr. Barrera's office. Awaiting med-surgical order per Dr. Barrera. Patient Status: Stable Diet: Regular Pending Orders: Med-Surg Transfer order Pending Results/Labs: AM Labs Pending MD notification: N Latest Vital Signs: Temperature 98.0 , Pulse 67 , B/P 117 /71 , Respiratory Rate 19 , O2 SAT 98 , , O2 Flow Rate . Vital Sign Comment: N EKG Rhythm: Sinus Bradycardia Rhythm change?: N Latest [place] Fall Score: 35 Fall Risk: Medium Risk Safety Measures: Call light Within Reach, Bed Alarm Zone 1, Side Rails Side Rails x2, Bed position Low and Locked. Fall Precautions: Yellow Socks Patient Fall Education Report given to ALINA Hebert.
--- NOTE | 2020-05-14 07:48 | NUR ---
NURSE NOTES: Patient received from ALINA Bowser. Patient observed to be asleep, currently on room air no s/sx of SOB/Distress. Patient placed on contact and droplet precaution for (+) covid. Patient with IV site located on LFA gauge 22 running d5 NS @ 100 CC. IV site observed to be dry, patent and intact no s/sx of redness or swelling. Bed placed on lowest and locked, call light placed within reach and will continue to monitor for any changes in patient's condition.
[2020-05-14 08:00] VITALS: BP 103/58
[2020-05-14] MEDS: Vitamin D 1000 units Tab ORAL SCH (08:42)
[2020-05-14] MEDS: Aspirin Baby 81mg ORAL SCH (08:42)
[2020-05-14] MEDS: Zinc Sulfate 220mg ORAL SCH (08:42)
[2020-05-14] MEDS: Losartan 50mg tab ORAL SCH (08:45)
[2020-05-14 08:59] LABS: BASOPHILS % (AUTO) 0.2 % (0.0-2.0); EOSINOPHILS % (AUTO) 0.4 % (0.0-3.0); HEMATOCRIT 41.5 % (42.0-52.0); HEMOGLOBIN 13.9 G/DL (14.2-18.0); MEAN CORPUSCULAR VOLUME 88 FL (80-99); MONOCYTES % (AUTO) 12.4 % (1.0-10.0); PLATELET COUNT 246 K/UL (150-450); RED BLOOD COUNT 4.71 M/UL (4.70-6.10); RED CELL DISTRIBUTION WIDTH 12.8 % (11.6-14.8); WHITE BLOOD COUNT 4.5 K/UL (4.8-10.8)
[2020-05-14 09:26] LABS: ALANINE AMINOTRANSFERASE 13 U/L (12-78); ALBUMIN 2.6 G/DL (3.4-5.0); ALBUMIN/GLOBULIN RATIO 0.6 (1.0-2.7); ALKALINE PHOSPHATASE 87 U/L (46-116); ANION GAP 8 mmol/L (5-15); ASPARTATE AMINO TRANSFERASE 17 U/L (15-37); BILIRUBIN,TOTAL 0.3 MG/DL (0.2-1.0); BLOOD UREA NITROGEN 17 mg/dL (7-18); CALCIUM 8.2 MG/DL (8.5-10.1); CARBON DIOXIDE 27 MMOL/L (21-32); CHLORIDE 112 MMOL/L (98-107); POTASSIUM 4.3 MMOL/L (3.5-5.1); SODIUM 146 MMOL/L (136-145)
[2020-05-14 12:00] VITALS: BP 114/58
--- NOTE | 2020-05-14 12:03 | Consultation ---
Consult Note Consult Note DATE OF CONSULTATION: 05/14/2020 CONSULTING PHYSICIAN: Ariel Hopkins MD. ATTENDING PHYSICIAN: Dr. Barrera REASON FOR CONSULTATION: Abnormal chest x-ray HISTORY OF PRESENT ILLNESS: This is a 84-year-old male with past medical history has been notable for hypertension who was seen by Dr. Barrera last week and was noted to have decrease in his baseline blood pressure parameters. Patient was asymptomatic and was in his usual state of health. The dose of doxazosin was decreased. Over the past 3 to 4 days, his family members noted him to be withdrawn and confused with regard to his speech and anorexic. Patient denied chest pain, shortness of breath, cough, sputum production, nausea, vomiting, or diarrhea. Patient tested positive for COVID-19 via PCR. Patient was admitted to the hospital for observation. Currently, patient blood pressure remained stable. Bradycardic at times but remains asymptomatic. Patient denies fever, chills, diarrhea, or shortness of breath. PAST MEDICAL HISTORY: Hypertension, coronary atherosclerosis, history of myocardial infarction, hyperlipidemia, osteoarthritis, degenerative disk disease, prostatic hypertrophy, vitamin D deficiency. 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 General: Patient laying in bed comfortably, NAD, normal work of breathing on room air HEENT: Head exam reveals that the head is normocephalic, atraumatic without deformity or unusual swelling. Pupils are PERRLA. CHEST AND LUNGS: Reveals clear, normal, symmetrical breath sounds with no adventitious sounds. CARDIOVASCULAR: Regular rate, normal S1, S2 with a fourth heart sound ABDOMEN: Soft with no tenderness or organomegaly. RECTAL: Deferred. MUSCULOSKELETAL: There is no tenderness to palpation. Range of motion is normal. NEUROLOGICAL: Alert and oriented x3 , nonfocal LABORATORY DATA: Laboratory testing shows hemoglobin 13.9, hematocrit 41.5. Chemistries show sodium 146, chloride 112, glucose 120, calcium, magnesium 1.6, albumin 2.6 Assessment/Plan 1. COVID-19 infection -Patient is asymptomatic; afebrile, no leukocytosis, normoxemia -No specific therapy for COVID-19 indicated at this time given normoxemia on room air -Provide supplemental oxygen as needed 2. 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 Time spent for this case was approximately 31 minutes. Gaurav Hadley May 14, 2020 12:03
--- NOTE | 2020-05-14 12:33 | NUR ---
*-*DISCHARGE PLANNING*-* PATIENT HAS BEEN ACCEPTED AND WILL BE DISCHARGED TO: [facility] P: [phone] ROOM# 8.C ~~~~~~~~~~~~~NO DISCHARGE ORDER YET~~~~~~~~~~~~~~~~~~~~
--- NOTE | 2020-05-14 13:02 | Diagnostic Imaging Report ---
Indication: Shortness of breath Technique: One view of the chest Comparison: 12/18/2017 Findings: Again demonstrated is marked elevation of the right hemidiaphragm. Some patchy and linear infiltrates are seen at the left lung base. This is new since the prior study. The heart size is normal. No effusions. Impression: Left lung infiltrates, suspicious for multifocal pneumonia.
[2020-05-14 16:00] VITALS: BP 144/82
[2020-05-14] MEDS: Enoxaparin 40mg Inj SUBQ SCH (18:33)
--- NOTE | 2020-05-14 19:26 | NUR ---
NURSE HAND-OFF REPORT: Important Events on Shift:mag so4 2 bags given Patient Status: stable Diet: reg Pending Orders: n.a Pending Results/Labs:n.a Pending notification:n.a Latest Vital Signs: Temperature 97.9 , Pulse 60 , B/P 144 /82 , Respiratory Rate 18 , O2 SAT 96 , , O2 Flow Rate . Vital Sign Comment: stable EKG Rhythm: Sinus Rhythm Rhythm change?: N MD Notified?: Moustapha Barrera MD Response: Latest [place] Fall Score: 35 Fall Risk: Medium Risk Safety Measures: Call light Within Reach, Bed Alarm Zone 1, Side Rails Side Rails x2, Bed position Low and Locked. Fall Precautions: Yellow Socks Patient Fall Education Report given to ALINA Ghosh.
--- NOTE | 2020-05-14 19:30 | NUR ---
NURSE NOTES: Got report from Emilee FULLER. Pt resting in bed comfortably. Pt in stable condition. Pt is A+Ox4 forgetful. Pt running NSR on the monitor. IV site L FA 22g slocked intact and patent w/D5W@100. Denies any pain. Denies any n/v or SOB. Pt is ambulatory steady. Pt is on room air sating 96%. Bed in low and locked position. Call light and bedside table within reach. No s/s of acute distress noted. Continue to monitor.
[2020-05-14 20:00] VITALS: BP 128/68
[2020-05-14] MEDS: Metoprolol Succinate XL 25mg tab ORAL SCH (21:00)
[2020-05-15] VITALS: BP 120/69
--- NOTE | 2020-05-15 02:31 | Cardiology Progress Note ---
Subjective DATE OF SERVICE: May 14, 2020 Appetite slighty better. No taste. He has no cough, SOB, CP, or hypoxia. COVID PCR swab done in my office was POSITIVE; patient and his family were made aware. Head CT: negative for acute infarct Objective Last 24 Hour Vital Signs Date Time Temp Pulse Resp B/P (MAP) Pulse Ox O2 Delivery O2 Flow Rate FiO2 05/15/20 00:00 52 05/15/20 00:00 97.7 63 17 120/69 (86) 97 05/14/20 21:00 71 128/68 05/14/20 21:00 Room Air 05/14/20 21:00 Room Air 05/14/20 20:00 97.5 71 17 128/68 (88) 95 05/14/20 20:00 74 05/14/20 16:00 60 05/14/20 16:00 97.9 72 18 144/82 (102) 96 05/14/20 12:00 62 05/14/20 12:00 98.0 61 18 114/58 (76) 92 05/14/20 09:00 Room Air 05/14/20 08:45 103/58 05/14/20 08:00 59 05/14/20 08:00 97.9 57 18 103/58 (73) 95 05/14/20 04:00 98.0 67 19 117/71 (86) 98 05/14/20 04:00 48 HEENT: normal ENT inspection RHYTHM: NSR, PVCs LUNGS: normal breath sounds CARDIAC: regular rhythm, normal S1 and S2, no murmur ABDOMEN: normal bowel sounds, non tender, soft, no organomegaly EXTREMITIES: normal range of motion Laboratory Tests Test 05/14/20 08:35 White Blood Count 4.5 K/UL (4.8-10.8) L Red Blood Count 4.71 M/UL (4.70-6.10) Hemoglobin 13.9 G/DL (14.2-18.0) L Hematocrit 41.5 % (42.0-52.0) L Mean Corpuscular Volume 88 FL (80-99) Mean Corpuscular Hemoglobin 29.5 PG (27.0-31.0) Mean Corpuscular Hemoglobin Concent 33.5 G/DL (32.0-36.0) Red Cell Distribution Width 12.8 % (11.6-14.8) Platelet Count 246 K/UL (150-450) Mean Platelet Volume 5.7 FL (6.5-10.1) L Neutrophils (%) (Auto) 70.0 % (45.0-75.0) Lymphocytes (%) (Auto) 17.0 % (20.0-45.0) L Monocytes (%) (Auto) 12.4 % (1.0-10.0) H Eosinophils (%) (Auto) 0.4 % (0.0-3.0) Basophils (%) (Auto) 0.2 % (0.0-2.0) Sodium Level 146 MMOL/L (136-145) H Potassium Level 4.3 MMOL/L (3.5-5.1) Chloride Level 112 MMOL/L (98-107) H Carbon Dioxide Level 27 MMOL/L (21-32) Anion Gap 8 mmol/L (5-15) Blood Urea Nitrogen 17 mg/dL (7-18) Creatinine 1.0 MG/DL (0.55-1.30) Estimat Glomerular Filtration Rate > 60 mL/min (>60) Glucose Level 120 MG/DL (74-106) H Calcium Level 8.2 MG/DL (8.5-10.1) L Magnesium Level 1.6 MG/DL (1.8-2.4) L Total Bilirubin 0.3 MG/DL (0.2-1.0) Aspartate Amino Transf (AST/SGOT) 17 U/L (15-37) Alanine Aminotransferase (ALT/SGPT) 13 U/L (12-78) Alkaline Phosphatase 87 U/L (46-116) Total Protein 6.8 G/DL (6.4-8.2) Albumin 2.6 G/DL (3.4-5.0) L Globulin 4.2 g/dL Albumin/Globulin Ratio 0.6 (1.0-2.7) L Assessment/Plan Assessment/Plan Covid-19 infection Anorexia Toxic encephalopathy No signs of acute CVA Hypovolemia/dehydration Prerenal azotemia/SHIRA Chronically elevated right hemidiaphragm Isolation IVF Nutrition Family notified to quarantine and get tested SNF transfer; patient cannot return home until off isolation. Vicente Barrera MD May 15, 2020 02:31
[2020-05-15 04:00] VITALS: BP 130/77
--- NOTE | 2020-05-15 07:15 | NUR ---
NURSE HAND-OFF REPORT: Important Events on Shift:[] Patient Status: [STABLE] Diet: [REGULAR] Pending Orders: [] Pending Results/Labs:[] Pending MD notification:[] Latest Vital Signs: Temperature 97.1 , Pulse 70 , B/P 130 /77 , Respiratory Rate 18 , O2 SAT 96 , , O2 Flow Rate . Vital Sign Comment: [] EKG Rhythm: Sinus Rhythm Rhythm change?: N MD Notified?: Moustapha -Dr. Bruce OLSEN Response: Latest Agudelo Fall Score: 35 Fall Risk: Medium Risk Safety Measures: Call light Within Reach, Bed Alarm Zone 1, Side Rails Side Rails x2, Bed position Low and Locked. Fall Precautions: Yellow Socks Patient Fall Education Report given to [APARNA FULLER]. Addendum: 05/15/20 at 0730 by Guero Jacome RN TX TO M/S WHEN BED AVAILABLE
--- NOTE | 2020-05-15 07:29 | NUR ---
NURSE NOTES: Report received from ALINA Ghosh. Patient is on bed, responds appropriately when greeted by the bedside. On RA saturating in the mid to high 90s. Patient is on regular diet, and compliant with pill medications as reported. Ambulatory and goes to the bathroom on his own as reported. Has a L FA 22 g, patent, intact, and running D5W at 100 cc/hr. Bed on lowest position, side rails up, locked. Bed side table within reach. Will continue to monitor patient. Will continue plan of care.
[2020-05-15 08:00] VITALS: BP 128/71
[2020-05-15] MEDS: Vitamin D 1000 units Tab ORAL SCH (09:37)
[2020-05-15] MEDS: Zinc Sulfate 220mg ORAL SCH (09:37)
[2020-05-15] MEDS: Losartan 50mg tab ORAL SCH (09:38)
[2020-05-15] MEDS: Aspirin Baby 81mg ORAL SCH (09:38)
[2020-05-15] MEDS: Enoxaparin 40mg Inj SUBQ SCH (09:39)
--- NOTE | 2020-05-15 11:13 | NUR ---
*-*DISCHARGE PLANNED*-* PATIENT HAS BEEN ACCEPTED AND WILL BE DISCHARGED TO: [facility] P: [phone] FOR NURSE TO NURSE REPORT ROOM# 8.[facility] SET FOR 1PM, S/W EVONNE [id number]. S/W PATIENTS JUDYLUCI TEMPLETONJOSE, WHO IS IN AGREEMENT WITH DISCHARGE PLAN.
[2020-05-15 12:00] VITALS: BP 152/85
--- NOTE | 2020-05-15 12:18 | Pulmonology Progress Note ---
Subjective ROS Limited/Unobtainable: No Constitutional: Denies: fever, chills HEENT: Repors: no symptoms Respiratory: Reports: no symptoms Cardiovascular: Reports: no symptoms Gastrointestinal/Abdominal: Reports: no symptoms Allergies: Coded Allergies: No Known Allergies (Unverified , 12/18/17) Objective Last 24 Hour Vital Signs Date Time Temp Pulse Resp B/P (MAP) Pulse Ox O2 Delivery O2 Flow Rate FiO2 05/15/20 09:38 128/71 05/15/20 09:00 Room Air 05/15/20 08:00 56 05/15/20 08:00 99.0 63 18 128/71 (90) 96 05/15/20 04:00 97.1 73 18 130/77 (94) 96 05/15/20 04:00 70 05/15/20 00:00 52 05/15/20 00:00 97.7 63 17 120/69 (86) 97 05/14/20 21:00 71 128/68 05/14/20 21:00 Room Air 05/14/20 21:00 Room Air 05/14/20 20:00 97.5 71 17 128/68 (88) 95 05/14/20 20:00 74 05/14/20 16:00 60 05/14/20 16:00 97.9 72 18 144/82 (102) 96 Intake and Output 05/14/20 05/15/20 19:00 07:00 Intake Total 200 ml Balance 200 ml Intake Oral 200 ml # Voids 3 HEENT: atraumatic Respiratory: lungs clear Cardiovascular: normal rate Abdomen: soft, non tender Current Medications Medications (Trade) Dose Ordered Sig/Brissa Route PRN Reason Start Time Stop Time Status Last Admin Dose Admin Aspirin (ASA) 81 mg DAILY ORAL 05/12/20 14:30 06/26/20 14:29 05/15/20 09:38 Dextrose 1,000 ml @ 100 mls/hr Q10H IV 05/14/20 18:30 06/13/20 18:29 05/15/20 04:23 Enoxaparin Sodium (Lovenox) 40 mg DAILY SUBQ 05/14/20 18:30 08/12/20 18:29 05/15/20 09:39 Losartan Potassium (Cozaar) 100 mg DAILY ORAL 05/13/20 09:00 06/12/20 08:59 05/15/20 09:38 Metoprolol Succinate (Toprol XL) 25 mg BEDTIME ORAL 05/12/20 21:00 08/10/20 20:59 05/14/20 21:00 Vitamin D (Vitamin D) 2,000 unit DAILY ORAL 05/13/20 09:00 06/12/20 08:59 05/15/20 09:37 Zinc Sulfate (Zinc Sulfate) 220 mg DAILY ORAL 05/13/20 09:00 08/11/20 08:59 05/15/20 09:37 Assessment/Plan Assessment/Plan 1. COVID-19 infection -Patient is asymptomatic; afebrile, no leukocytosis, normoxemia -No specific therapy for COVID-19 indicated at this time given normoxemia on room air -Provide supplemental oxygen as needed 2. 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 Possible pneumonia on CXR - Left lower lobe infiltrates - However, afebrile, no leukocytosis, normoxemia; observe off Abx Noted plan for discharge Medically stable for discharge from pulmonary standpoint The care for this patient was discussed with my supervising physician. Time spent for this case was approximately 31 minutes. Gaurav Hadley May 15, 2020 12:18
--- NOTE | 2020-05-15 12:34 | NUR ---
NURSE NOTES: Called [facility] to give report to nurse regarding patient being discharged to the facility. 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 Left phone number for them to call back.
--- NOTE | 2020-05-15 12:53 | NUR ---
NURSE NOTES: Report given to nurse LORRIE from [facility]. Patient is going to room 8 bed C.
[2020-05-15] MEDS ORDERED: D5NS 1000ml IV ONE (13:39)
--- NOTE | 2020-05-15 17:48 | Cardiology Progress Note ---
Subjective DATE OF SERVICE: May 15, 2020 Appetite slighty better. No taste still. He has no cough, SOB, CP, or hypoxia. COVID PCR swab done in my office was POSITIVE; patient and his family were made aware. Head CT: negative for acute infarct Patient says he is weak, with unsteadiness. Objective Last 24 Hour Vital Signs Date Time Temp Pulse Resp B/P (MAP) Pulse Ox O2 Delivery O2 Flow Rate FiO2 05/15/20 12:00 98.9 76 18 152/85 (107) 94 05/15/20 11:48 60 05/15/20 09:38 128/71 05/15/20 09:00 Room Air 05/15/20 08:00 56 05/15/20 08:00 99.0 63 18 128/71 (90) 96 05/15/20 04:00 97.1 73 18 130/77 (94) 96 05/15/20 04:00 70 05/15/20 00:00 52 05/15/20 00:00 97.7 63 17 120/69 (86) 97 05/14/20 21:00 71 128/68 05/14/20 21:00 Room Air 05/14/20 21:00 Room Air 05/14/20 20:00 97.5 71 17 128/68 (88) 95 05/14/20 20:00 74 HEENT: normal ENT inspection RHYTHM: NSR, PVCs LUNGS: normal breath sounds CARDIAC: regular rhythm, normal S1 and S2, no murmur ABDOMEN: normal bowel sounds, non tender, soft, no organomegaly EXTREMITIES: normal range of motion Assessment/Plan Assessment/Plan Covid-19 infection Anorexia Toxic encephalopathy No signs of acute CVA Hypovolemia/dehydration Prerenal azotemia/SHIRA Chronically elevated right hemidiaphragm Functional decline Isolation DC IVF Nutrition Family notified to quarantine and get tested SNF transfer for rehab; patient cannot return home until off isolation. Vicente Barrera MD May 15, 2020 17:48
--- NOTE | 2020-05-19 13:35 | Discharge Summary ---
Discharge Summary Discharge Summary _ DATE OF ADMISSION: 05/12/2020 DATE OF DISCHARGE: 05/15/2020 DISCHARGED BY: Dr. Barrera REASON FOR ADMISSION: 84 years old male with past medical history of hypertension, coronary atherosclerotic disease, history of myocardial infarction, hyperlipidemia, degenerative disc disease, BPH, osteoarthritis, vitamin D deficiency, was seen in the office last week and noted to have decrease in the baseline blood pressure parameters; no other symptoms were noted. Over the past 3 to 4 days his family members noted him to be withdrawn and confused with regards to his speech as well as the poor appetite. No complaints of chest pain or shortness of breath. No cough, sputum production, nausea , vomiting or diarrhea. In the office COVID 19 swab was obtained. His condition worsened and prompted admission to the hospital. CONSULTANTS: pulmonary Dr. Hopkins HOSPITAL COURSE: Patient admitted and started on IV hydration. Patient initially was placed on isolation while awaiting fro result of COVID testing. CT of the head revealed chronic and age-related changes , but was negative for acute intracranial pathology. COVID-19 , done in the office, was positive. Patient remained in isolation . Patient had no hypoxia . Pulse oximetry remained stable on room air. [employer] Roller followed . Chest x-ray revealed findings of multifocal pneumonia. DVT prophylaxis provided. Cardiovascular regimen was titrated ; blood pressure stabilized. Patient remained afebrile , no leukocytosis . Renal parameters and electrolytes were closely monitored: creatinine from initial 1.5 down to 1 prior to discharge. Electrolytes remained stable Troponin negative , telemetry revealed sinus rhythm. Patient was closely monitored while in the hospital and remained without any respiratory symptoms , however was unable to return home until in isolation . Transfer was arranged to the assisted facility . Patient was stable for discharge to the assisted facility until isolation complete. FINAL DIAGNOSES: COVID-19 infection Acute encephalopathy Possible pneumonia Hypovolemia and dehydration with prerenal azotemia-resolved History of hypertension , currently with low range blood pressure -stabilized DISCHARGE MEDICATIONS: See Medication Reconciliation list. DISCHARGE INSTRUCTIONS: Patient was discharged to the assisted facility. Follow up with medical doctor at the facility. I have been assigned to dictate discharge summary for this account. I was not involved in the patient's management. Alisa Haq NP May 19, 2020 13:35
== END 2020-05-15 13:40 | DRG 177 ==
LOC: 2E 11:57
DX: U07.1 COVID-19 (principal); G92 Toxic encephalopathy; J12.82 Pneumonia due to coronavirus disease 2019; N17.9 Acute kidney failure, unspecified; E86.0 Dehydration; R63.0 Anorexia; I10 Essential (primary) hypertension; I25.10 Atherosclerotic heart disease of native coronary artery without angina pectoris; I25.2 Old myocardial infarction; E78.5 Hyperlipidemia, unspecified; M19.90 Unspecified osteoarthritis, unspecified site; N40.0 Benign prostatic hyperplasia without lower urinary tract symptoms; E86.1 Hypovolemia
CPT/HCPCS: 36415; 70450; 71045; 80048; 80053; 82140; 83735; 84443; 84484; 85025